=== PATIENT | female | born 1945 | race Caucasian/White ===

== ENCOUNTER 2016-03-25 10:09 | Outpatient (CLI) ==
[2012-08-29 11:17] VITALS: TEMP 98.2
[2015-07-30 10:54] VITALS: BMI 24.5
[2016-03-25 10:30] LABS: ADD URINE MICROSCOPIC NO; BILIRUBIN,URINE Negative (NEGATIVE); KETONES,URINE Negative (NEGATIVE); LEUKOCYTE ESTERASE ,URINE Negative (NEGATIVE); NITRITE,URINE Negative (NEGATIVE); PROTEIN,URINE Negative (NEGATIVE); URINE, BLOOD Negative (NEGATIVE)
[2016-03-25 11:25] LABS: VALPORIC ACID (DEPAKENE) 28.72 ug/mL (50.00-100.00)
== END 2016-03-25 10:10 | disposition home or self-care (01) ==
LOC: LAB 10:09 → NONPT 10:10
PROVIDERS: ATTEND Internal Medicine
DX: R56.9 Unspecified convulsions (principal); R32 Unspecified urinary incontinence
CPT/HCPCS: 80164; 80185; 81001

== ENCOUNTER 2016-04-28 16:24 | Outpatient (CLI) ==
[2012-08-29 11:17] VITALS: TEMP 98.2
[2015-07-30 10:54] VITALS: BMI 24.5
[2016-04-28 16:40] LABS: BILIRUBIN,URINE Negative (NEGATIVE); KETONES,URINE Negative (NEGATIVE); LEUKOCYTE ESTERASE ,URINE 2+ (NEGATIVE); NITRITE,URINE Positive (NEGATIVE); PROTEIN,URINE 3+ (NEGATIVE); URINE, BLOOD 2+ (NEGATIVE)
[2016-04-28 16:42] LABS: ADD URINE MICROSCOPIC YES
== END 2016-04-28 16:25 | disposition home or self-care (01) ==
LOC: LAB 16:24
PROVIDERS: ATTEND Emergency Medicine
DX: R50.9 Fever, unspecified (principal); R73.9 Hyperglycemia, unspecified
CPT/HCPCS: 81001; 87086; 87186